=== PATIENT | female | born 1985 | race Caucasian/White ===

== ENCOUNTER 2023-03-21 20:48 | Emergency (ER) | payer SELFPAY ==
[2023-03-21 21:00] VITALS: BP 126/78; PULSE 108; RESP 18; TEMP 98.4; BMI 29.2
== END 2023-03-21 21:40 | disposition left against medical advice (07) ==
LOC: JER 20:48
DX: R10.33 Periumbilical pain (principal); R11.2 Nausea with vomiting, unspecified
CPT/HCPCS: 99281-25